=== PATIENT | female | born 1995 | race Caucasian/White ===

== ENCOUNTER 2022-12-19 20:34 | Outpatient (REF) | payer OTHER, SELFPAY ==
[2022-12-23 17:07] LABS: Age Gdln ACOG Testing Note (.); IGP, rfx Aptima HPV ASCU Note (.)
== END 2022-12-19 20:35 | disposition home or self-care (01) ==
LOC: LAB 20:34
PROVIDERS: PCP Nurse Practitioner Family; Visit Provider Obstetrics & Gynecology
DX: Z01.419 Encounter for gynecological examination (general) (routine) without abnormal findings (principal)
CPT/HCPCS: G0145

== ENCOUNTER 2022-12-29 10:03 | Outpatient (OUT) | payer OTHER, SELFPAY ==
--- NOTE | 2022-12-29 10:07 | US_ITS ---
The [address] [address] Patient Name: EPIFANIO COELHO MRN: [id number] date: 1995 Sex: F Assigned Patient Location: US Current Patient Location: US Accession/Order Number: [id number] Exam Date: 12/29/2022 10:10 Report Date: 12/29/2022 11:54 At the request of: JOSTIN HAN Procedure: US abdomen limited EXAM: US abdomen limited HISTORY: Unspecified abdominal pain R10.9 . Palpable lump right side for 3 weeks. COMPARISON: None. TECHNIQUE: Multiple sonographic images of the abdominal wall along the right side in the mid and lower aspect were obtained, supplemented with Doppler. FINDINGS: There is an oval isoechoic nodular structure measuring 6.0 x 4.2 x 4.1 cm on the right side. No other cystic or solid mass is identified. The vasculature is intact. There is no evidence of a hernia in the intra-abdominal wall. US/US abdomen limited IMPRESSION: In the right lower quadrant anterior to the oblique muscles is an oval soft tissue mass which appears relatively benign in nature, although the etiology is uncertain. This may be the reported palpable lump. No other cystic or solid mass is identified. There is no evidence of an anterior wall herniation. A follow up ultrasound study may be helpful in confirming the chronicity of these findings. Electronically authenticated by: ZO FARRAR Date: 12/29/2022 11:54
== END 2022-12-29 10:04 | disposition home or self-care (01) ==
LOC: US 10:03
PROVIDERS: PCP Nurse Practitioner Family; Visit Provider Nurse Practitioner Family
DX: R10.9 Unspecified abdominal pain (principal)
CPT/HCPCS: 76705

== ENCOUNTER 2023-01-17 12:21 | Outpatient (OUT) | payer OTHER, SELFPAY ==
--- NOTE | 2023-01-17 12:24 | CT_ITS ---
[address] [address] Patient Name: EPIFANIO COELHO MRN: [id number] date: 1995 Sex: F Assigned Patient Location: CT Current Patient Location: CT Accession/Order Number: [id number] Exam Date: 01/17/2023 13:35 Report Date: 01/17/2023 15:29 At the request of: TIANA YOST Procedure: CT abdomen pelvis w con EXAMINATION: CT abdomen pelvis w con HISTORY: Other Specified Soft Tissue Disorder M79.89 COMPARISON: 12/29/2022 ultrasound TECHNIQUE: CT images were created with IV contrast. Axial, Coronal, and Sagittal images. Dose reduction techniques were achieved by using automated exposure control and/or adjustment of mA and/or kV according to patient size and/or use of iterative reconstruction technique. FINDINGS: LUNG BASES: No visible pulmonary or pleural disease. LIVER: No enlargement, atrophy, abnormal density, or significant focal lesion. BILIARY: No visible dilatation or calcification. PANCREAS: No lesion, fluid collection, ductal dilatation, or atrophy. SPLEEN: No enlargement or focal lesion. ADRENALS: No mass or enlargement. KIDNEYS: No mass, obstruction, or calcification. BOWEL/MESENTERY: No visible mass, obstruction, or bowel wall thickening. Normal appendix AORTA/VASCULAR: No aneurysm or dissection. RETROPERITONEUM: No mass or adenopathy. LYMPH NODES: No adenopathy. URINARY BLADDER: No visible focal wall thickening, lesion, or calculus. PELVIC ORGANS: No visible mass. Pelvic organs appropriate for patient age. ABDOMINAL WALL: No mass or hernia. BONES: No bony lesion or fracture. OTHER: In the region of the patient's palpable lump right side, demarcated with the BB, axial image 61, no abnormality is observed CT/CT abdomen pelvis w con IMPRESSION: No acute intraperitoneal abnormality No abnormality to correspond to the patient's palpable Electronically authenticated by: SONA LANDIN Date: 01/17/2023 15:29
== END 2023-01-17 12:22 | disposition home or self-care (01) ==
LOC: CT 12:21
PROVIDERS: PCP Nurse Practitioner Family; Visit Provider Family Medicine
DX: M79.89 Other specified soft tissue disorders (principal)
CPT/HCPCS: 74177; 88305; Q9967

== ENCOUNTER 2023-03-13 12:30 | Outpatient (OUT) | payer OTHER, SELFPAY | END 2023-03-13 12:31 | disposition home or self-care (01) | LOC: PST 12:30 | PROVIDERS: PCP Nurse Practitioner Family; Visit Provider Surgery | DX: Z01.818 Encounter for other preprocedural examination (principal); D17.9 Benign lipomatous neoplasm, unspecified ==

== ENCOUNTER 2023-03-22 05:57 | Day surgery (SDC) | payer OTHER, SELFPAY ==
[2023-03-13 12:52] VITALS: BP 140/90; PULSE 77; RESP 18; TEMP 36.3; O2SAT 98; BMI 36.1
[2023-03-22] VITALS (13 sets, daily range): BP systolic 85–119; BP diastolic 45–84; PULSE 64–109; RESP 15–22; TEMP 36.3–36.4; O2SAT 94–99
--- NOTE | 2023-03-22 | OP_ITS ---
OPERATION DATE: ??03/22/2023 PREOPERATIVE DIAGNOSIS:? Enlarging painful lipoma right flank. POSTOPERATIVE DIAGNOSIS:? Enlarging painful lipoma right flank. PROCEDURE:? Excisional biopsy lipoma right flank. ANESTHESIA:? General with laryngeal mask airway. ESTIMATED BLOOD LOSS:? Less than 3 mL. SIZE OF LIPOMA:? 6 x 4 cm. INDICATIONS AND CONSENT:? Patient is a 27-year-old female with history of enlarging, asymptomatic lipoma of the right flank.? She is undergoing a LEEP procedure by Dr. Mo under anesthesia and requested excision of the lipoma at the same times.? Indications, risks, benefits, alternative of proceeding were explained extensively to the patient, including the risks of bleeding, infection, scarring, pain, recurrence and need for further surgery.? All of her questions were answered.? Informed consent was obtained. PROCEDURE:? Patient was already in the operating room, under general anesthesia, had completed the LEEP procedure.? She was prepped and draped in the usual sterile fashion.? An oblique incision was made over the long axis of the lipoma and carried down through subcutaneous tissue using sharp dissection as well as electrocautery.? A 6 x 4 cm lipoma was identified and freed up using electrocautery.? It was sent off to Pathology.? There was good hemostasis.? The wound was irrigated.? The subcutaneous tissue was re-approximated with interrupted 3-0 Monocryl suture.? The skin was then closed with a running 4-0 subcuticular Monocryl suture.? Skin glue was applied as well as a sterile pressure dressing. ?Sponge and needle counts were correct x2 per nursing personnel.? Patient tolerated procedure well, was sent to recovery room in good condition.\ CC:? Patient?s family physician BROOKS
[2023-03-22 06:07] LABS: Basophils Absolute Auto 0.1 10^3/uL (0.0-0.1); Basophils Percent Auto 0.5 % (0.2-2.0); Eosinophils Absolute Auto 0.2 10^3/uL (0.0-0.7); Eosinophils Percent Auto 1.7 % (0.9-7.0); Hematocrit 41.1 % (36.0-48.0); Immature Granulocytes Abs Auto 0.02 10^3/uL (0.00-0.03); Immature Granulocytes Pct Auto 0.2 % (0.0-0.5); Lymphocytes Absolute Auto 4.3 10^3/uL (1.2-3.8); Lymphocytes Percent Auto 38.1 % (20.5-60.0); Mean Corpuscular HGB Conc 34.1 g/dL (29.9-35.2); Mean Corpuscular Hemoglobin 31.2 pg (26.7-34.0); Mean Corpuscular Volume 91.5 fL (81.0-99.0); Mean Platelet Volume 8.2 fL (9.5-13.5); Monocytes Absolute Auto 0.8 10^3/uL (0.3-0.8); Monocytes Percent Auto 6.7 % (1.7-12.0); Neutrophils Absolute Auto 5.9 10^3/uL (1.4-6.5); Neutrophils Percent Auto 52.8 % (43.0-75.0); Platelet Count 330 10^3/uL (150-450); Red Blood Count 4.49 10^6/uL (4.20-5.40); Red Cell Distribution Width 11.8 % (11.0-15.0); White Blood Count 11.3 10^3/uL (4.0-11.0)
--- NOTE | 2023-03-22 06:36 | PC.NURSE ---
Wheezing noted initially and clear after instructed to cough
[2023-03-22 06:38] LABS: HCG Quantitative <1 mIU/mL
[2023-03-22] MEDS: LACTATED RINGER'S SOLUTION 1,000 ML 50 ML IV (07:08)
[2023-03-22] MEDS: CEFAZOLIN SODIUM/DEXTROSE,ISO 2 GM/50 ML PIGGYBACK IV (07:09)
[2023-03-22] MEDS: IODINE/POTASSIUM IODIDE 8 ML SOLUTION TOPICAL (07:35)
[2023-03-22] MEDS: FERRIC SUBSULFATE 8 ML SOLUTION TOPICAL (07:45)
--- NOTE | 2023-03-22 07:50 | PM.ONB ---
Brief Operative Note Date of procedure: 03/22/23 Pre-op diagnosis: cervical dysplasia Post-op diagnosis: same as pre-op Procedure: NAME OF PROCEDURE: [leep ] PROCEDURE: Patient was taken back to the Operating Room where she was given general anesthesia without difficulty. She was then placed in the dorsal lithotomy position. She was then prepped and draped in the normal sterile fashion. A weighted speculum was placed into the patient's vagina. The anterior lip of the cervix was identified and grasped with a single-tooth tenaculum. The patient's cervix was then copiously irrigated using vinegar.? Then, a Lugol Solution was also placed onto the patient's cervix which demonstrated increased uptake of the Lugol solution at the [? ] o?clock and [? ] o?clock positions.? At that time, the LEEP portion of the procedure was performed, including both the [? ] o?clock and [? ] o?clock positions. The ectocervix was sent out to Pathology. The patient's cervix was then coagulated using suction cautery. Excellent hemostasis was assured.? Monsel Solution was then placed onto the patient's cervix to help maintain adequate hemostasis. All instruments were removed from the patient's vagina. The anterior lip of the cervix demonstrated excellent hemostasis.? The patient tolerated the procedure well. Sponge, lap, and needle counts were correct x 2. The patient was taken to Recovery Room in stable condition. Anesthesia: KAREN Surgeon: Hollis Mo Estimated blood loss (mL): 10 Pathology: other (ectocervical tissue) Condition: stable Disposition: floor
[2023-03-22] MEDS: BUPIVACAINE HCL 0.5% PF 50 MG/10 ML VIAL INJ (08:20)
[2023-03-22] MEDS: HYDROCODONE/ACET 5-325 MG TABLET 1 TAB PO (08:54)
--- NOTE | 2023-03-22 09:43 | PC.NURSE ---
0943: pt up to bathroom with minimal assistance,voids without difficulty.
== END 2023-03-22 09:52 | disposition home or self-care (01) ==
PROVIDERS: Obstetrics & Gynecology; PCP Nurse Practitioner Family; Visit Provider Surgery
PROC: (CPT 21931; principal; 2023-03-22 07:15)
PROC: (CPT 940; 2023-03-22 07:15)
DX: R87.613 High grade squamous intraepithelial lesion on cytologic smear of cervix (HGSIL) (principal); D17.1 Benign lipomatous neoplasm of skin and subcutaneous tissue of trunk; F31.81 Bipolar II disorder; K21.9 Gastro-esophageal reflux disease without esophagitis; L73.2 Hidradenitis suppurativa; E66.01 Morbid (severe) obesity due to excess calories; K58.9 Irritable bowel syndrome, unspecified; R10.9 Unspecified abdominal pain; F17.210 Nicotine dependence, cigarettes, uncomplicated; Z68.36 Body mass index [BMI] 36.0-36.9, adult
CPT/HCPCS: 21931; 57522; 36415; 84702; 85025; 88304; 88307; 88341; 88342; J2704

== ENCOUNTER 2023-07-31 22:05 | Outpatient (REF) | payer OTHER, SELFPAY ==
--- OUTSIDE RECORDS SUMMARY | 2023-07-31 22:11 | XMS_ITS | CCD ---
Author Organization [facility] Care Team Providers Care Vet Tech Name Role Phone NEEMA Gutierres, DR HILL Admitting Unavailable NEEMA Gutierres, DR HILL Consulting Unavailable NEEMA Gutierres, DR HILL Attending Unavailable KELLY HAN Primary Care Unavailable MARV DÍZA Consulting Unavailable KELLY HAN Primary Care Physician MELQUIADES DURAND Attending Unavailable NILL, José Sorto Attending Unavailable NILL, José Sorto Attending Unavailable NILL, José Sorto Attending Unavailable Allergies Allergy Classification Reported Allergen(s) Allergy Type Date of Onset Reaction(s) Facility (3 sources) Latex; Translations: [Latex] Allergy to substance Weal (disorder) General Surgery [facility] (1 source) No Known Medication Allergies; Translations: [No Known Medication Allergies] Propensity to adverse reactions (disorder) [facility] Repository NEGATED: Highlighted row has been ruled out! (1 source) Drug allergy [facility] NEGATED: Highlighted row has been ruled out! (1 source) Drug allergy [facility] Medications Current Medications Medication Drug Class(es) Dates Sig (Normalized) Sig (Original) atomoxetine 40 mg oral capsule (2 sources) Norepinephrine Reuptake Inhibitor Start: 02-13-2023 take 1 capsule by mouth once daily in the morning Strattera 40 mg Cap 40 mg = 1 cap(s), Oral, qAM, Refills(s) 0 Start Date: 02/13/23 Status: Ordered omeprazole 40 mg delayed release oral capsule (2 sources) Proton Pump Inhibitor Start: 02-21-2023 take 1 capsule by mouth once daily omeprazole 40 mg Cap-DR 40 mg = 1 cap(s), Oral, Daily, Refills(s) 0 Start Date: 02/21/23 Status: Ordered Problems Problem Classification Problem Date Documented Da te Episodic/Chronic Attention-deficit, conduct, and disruptive behavior disorders (2 sources) Attention deficit hyperactivity disorder 02-13-2023 Chronic E Codes: Natural/environment (1 source) Overexertion from prolonged static or awkward postures, initial encounter; Translations: [OVEREXERT PROLNG STAT/AWK PST INIT] Onset: 3 Episodic E Codes: Unspecified (1 source) Activity, walking, marching and hiking; Translations: [ACTIVITY WALKING MARCHING AND HIKING] Onset: 3 Episodic Esophageal disorders (2 sources) Gastroesophageal reflux disease 02-13-2023 Chronic Mood disorders (2 sources) Bipolar II disorder 02-13-2023 Chronic Other and unspecified benign neoplasm (4 sources) Lipoma of skin and subcutaneous tissue of trunk; Translations: [Benign lipomatous neoplasm of skin and subcutaneous tissue of trunk] Onset: 3 Episodic Other disorders of stomach and duodenum (2 sources) Indigestion 02-13-2023 Episodic Other gastrointestinal disorders (2 sources) Irritable bowel syndrome 02-13-2023 Chronic Other non-traumatic joint disorders (3 sources) Pain in right ankle and joints of right foot; Translations: [PAIN IN RIGHT ANKLE] Onset: 3 Episodic Other nutritional; endocrine; and metabolic disorders (2 sources) Body mass index 30+ - obesity 02-21-2023 Chronic Other nutritional; endocrine; and metabolic disorders (2 sources) Morbid obesity 02-21-2023 Chronic Other skin disorders (2 sources) Hidradenitis suppurativa 02-13-2023 Episodic Other upper respiratory disease (2 sources) Dysphonia 02-13-2023 Episodic Sprains and strains (1 source) Sprain of unspecified ligament of right ankle, initial encounter; Translations: [SPRAIN UNS LIGAMENT RT ANKLE INIT] Onset: 3 Episodic Substance-related disorders (2 sources) Nicotine dependence 02-13-2023 Chronic Results Test Name Value Interpretation Reference Range Facil ity Ambulatory Visit Summaryon 1 06-08-2022 Ambulatory Visit Summary EPIFANIO COELHO :1995 Visit Date:04/07/2023 Ambulatory Visit Instructions Your Diagnosis Lipoma of flank Your Care Team Attending Physician - KRYSTLE TOWNSEND, José Sorto Primary Care Physician - EMELY ALVARADO, KELLY Johnson This Is Your Medications List Contact prescribing physician if questions or concerns atomoxetine (Strattera 40 mg Cap) omeprazole (omeprazole 40 mg Cap-DR) Procedures Performed Excision of lipoma (03/22/2023), section, section. Medications What How Much When Instructions Unchanged atomoxetine (Strattera 40 mg Cap) 1 Capsules By Mouth Once a day (in the morning) Contact prescribing physician if questions or concerns Unchanged omeprazole (omeprazole 40 mg Cap-DR) 1 Capsules By Mouth Every day Contact prescribing physician if questions or concerns Allergies Latex (Hives) No Known Medication Allergies Problems Ongoing - Any problem that you are currently receiving treatment for. Attention deficit hyperactivity disorder Bipolar II disorder BMI 36.0-36.9,adult Dyspepsia Dysphonia Gastroesophageal reflux disease Hidradenitis suppurativa Irritable bowel syndrome Lipoma of flank Morbid obesity Nicotine dependence Patient Survey You may receive a survey via text or e-mail asking about your office visit. Please share your experience with us by completing your survey. We appreciate your feedback and thank you for choosing us for your care. Normal [facility] General Surgery Office/Clini c Noteon 04-07-2023 General Surgery Office/Clinic Note Chief Complaint post operative follow up HPI Staff 16 day post operative follow up post excisional biopsy right flank lipoma. Denies discomfort, bleeding or drainage. History of Present Illness 16 days s/p excision lipoma right flank; pathology consistent with benign lipoma; doing well, mild soreness, no drainage from incision. Review of Systems HEENT: normal conjunctiva, sclera clear, no scleral icterus, EOM intact, PERRLA, oral mucosa moist without lesions. Neck: trachea midline, no mass, symmetric, no thyromegaly or nodules, no adenopathy Respiratory: lungs CTA, respirations non labored. Cardiovascular: regular rate and rhythm, no murmur, no pedal edema or varicosities. Gastrointestinal: soft, non distended, no tenderness, no masses, no palpable hernias, diastasis recti no, no hepatosplenomegaly; normal bs Lymphatic: no cervical adenopathy, no axillary adenopathy, no inguinal adenopathy. Musculoskeletal: normal gait, digits and nails without infection, nodes, cyanosis, clubbing. Skin: no rashes, no lesions, no ulcers, no subcutaneous nodules, induration. Psychiatric/Neuro: oriented to time, place, person, judgement normal, affect appropriate for age, insight intact, no focal deficits. Tests: labs reviewed, x-rays reviewed, review of old records completed , _ surgical options, risks, and possible complications with patient. Physical Exam skin: incision healing well, no erythema or drainage, no ecchymoses. Assessment/Plan 1. Lipoma of flank (D17.1: Benign lipomatous neoplasm of skin and subcutaneous tissue of trunk) doing well, call with problems/questions. Follow-up No qualifying data available Problem List/Past Medical History Ongoing Attention deficit hyperactivity disorder Bipolar II disorder BMI 36.0-36.9,adult Dyspepsia Dysphonia Gastroesophageal reflux disease Hidradenitis suppurativa Irritable bowel syndrome Lipoma of flank Morbid obesity Nicotine dependence Historical No qualifying data Procedure/Surgical History Excision of lipoma (03/22/2023), section, section. Medications omeprazole 40 mg Cap-DR, 40 mg= 1 cap(s), Oral, Daily Strattera 40 mg Cap, 40 mg= 1 cap(s), Oral, qAM Allergies Latex (Hives) No Known Medication Allergies Social History Alcohol - Denies Alcohol Use, 02/21/2023 Substance Abuse Current, Marijuana, 1-2 times per month, 02/21/2023 Tobacco 10 or more cigarettes (1/2 pack or more)/day in last 30 days Tobacco Use:. Never Smokeless Tobacco Use:. Cigarettes, 1 per day. Started age 13.0 Years. Yes, 02/21/2023 Family History Family history is negative Immunizations Vaccine Date Status Comments influenza virus vaccine, inactivated - Not Given Patient Refuses Normal [facility] Comment on above: Result Comment: Elec tronically Signed By: KRYSTLE TOWNSEND, José Steiner\Date and Time Signed: 04/07/23 14:20 EST Pathology Noteon 04-03-2023 Pathology Note [id number] #1.00TIFF Normal [facility] Operative Reporton Operative Report [id number] #1.00TIFF Normal [facility] Insurance Correspondenceon Insurance Correspondence [id number] 1#1.00TIFF [facility] Consent for Procedure/Surger yon 02-22-2023 Consent for Procedure/Surgery [id number]#1.00TIFF [facility] Ambulatory Visit Summaryon 1 Ambulatory Visit Summary EPIFANIO COELHO :1995 Visit Date:02/21/2023 Ambulatory Visit Instructions Your Care Team Attending Physician - KRYSTLE TOWNSEND, José Sorto Primary Care Physician - KELLY HAN CNP This Is Your Medications List Contact prescribing physician if questions or concerns atomoxetine (Strattera 40 mg Cap) omeprazole (omeprazole 40 mg Cap-DR) Procedures Performed section, section. Discharge Vitals Heart Rate (Peripheral) 76 Respiratory Rate 16 Blood Pressure 118/72 Height 160 cm Height 63 in Weight 93.1 kg Weight 204.82 lb BMI 36.37 Medications What How Much When Instructions Unchanged atomoxetine (Strattera 40 mg Cap) 1 Capsules By Mouth Once a day (in the morning) Contact prescribing physician if questions or concerns Unchanged omeprazole (omeprazole 40 mg Cap-DR) 1 Capsules By Mouth Every day Contact prescribing physician if questions or concerns Allergies Latex (Hives) No Known Medication Allergies Problems Ongoing - Any problem that you are currently receiving treatment for. Attention deficit hyperactivity disorder Bipolar II disorder BMI 36.0-36.9,adult Dyspepsia Dysphonia Gastroesophageal reflux disease Hidradenitis suppurativa Irritable bowel syndrome Morbid obesity Nicotine dependence [facility] Formson 02-21-2023 Forms [id number] #1.00TIFF [facility] Provider Letteron 02-03-2023 Provider Letter February 03, 2023 EPIFANIO COELHO [address] [place] [address] : 1995 Dear Ms. Coelho We have been trying to reach you with no success regarding a referral from Kelly Han. The phone number we have on file is out of service. It is important that you return our call upon receiving this letter so that we can set up an appointment for you. Also, at the time of your call, please provide us with your current demographic and insurance information. Thank you for your prompt attention to this matter. Sincerely, [facility] General Surgery [phone] Normal [facility] RAD - CT Reporton 02-01-2023 RAD - CT Report [id number] #1.00CD:127 Normal [facility] RAD - Ultrasound Reporton RAD - Ultrasound Report [id number]# 1.00CD:127 Normal [facility] Physician Referralon 023 Physician Referral [id number] #1.00CD:127 Normal [facility] XR FOOT LT MIN 3 VIEWSon XR FOOT LT MIN 3 VIEWS EXAM: XR ANKLE LT MIN 3 V, XR FOOT LT MIN 3 VIEWS HISTORY: Joint swelling COMPARISON: None. TECHNIQUE: Multiple views of the left ankle and foot FINDINGS: Ankle and foot: There is no acute fracture or dislocation. The ankle mortise is unremarkable. The talar dome is congruent. There is soft tissue swelling about the ankle. IMPRESSION: No acute fracture or dislocation. Electronically authenticated by: MARV DÍAZ Date: 2022-08-06 11:17 Normal [facility] Vital Signs Date Time Vital Sign Value Performing Clinician Dharmesh mcbride 02-21-2023 13:13-0400 Blood Pressure Location José DALTON [facility] 02-21-2023 13:13-0400 Diastolic blood pressure 72 mm[Hg] José DALTON [facility] 02-21-2023 13:13-0400 Heart rate 76 /min José DALTON [facility] 02-21-2023 13:13-0400 Respiratory rate 16 /min José DALTON [facility] 02-21-2023 13:13-0400 Systolic blood pressure 118 mm[Hg] José DALTON General Surgery [facility] Encounters Encounter Date Encounter Type Care Provider Facility Start: 04-07-2023 End: 04-08-2023 ambulatory José DALTON Facility:[facility] Start: 04-07-2023 End: 04-07-2023 Patient encounter procedure José DALTON General Surgery [place] Start: 03-29-2023 End: 03-29-2023 ambulatory MELQUIADES DURAND Not Available Start: 03-22-2023 End: 03-23-2023 ambulatory José DALTON Facility:[id number] Start: 02-21-2023 End: 02-22-2023 ambulatory José DALTON Facility:[facility] Start: 02-21-2023 End: 02-21-2023 Patient encounter procedure José DALTON General Surgery [place] Start: 01-31-2023 ambulatory José DALTON Facility:[facility] Start: 08-06-2022 End: 08-06-[address] SERGIO BETHEA . Facility: Procedures Date Procedure Procedure Detail Performing Clinician Start: 03-22-2023 Excision of lipoma Sridhar DALTON Comment on above: right flank section José Carlos Immunizations Immunization Date Immunization Notes Care Provider Fa cility NEGATED: Highlighted row has not occurred!02-21-2023 influenza virus vaccine, unspecified formulation José DALTON General Surgery [facility] Payers Date Payer Category Payer Unknown [id number] [id number] 1995 Unknown [id number] 1995 Unknown [id number] [id number] [id number] 1995 Unknown [id number] 2.16.8 [id number] 1995 Unknown [id number] 2.16.8 [id number] 1961 Unknown [id number] Social History Date Type Detail Facility Start: 02-21-2023 Tobacco smoking status Heavy t obacco smoker (finding) [facility] Tobacco smoking status Never Gener [facility] Sex Assigned At Female [facility] Functional Status Date Assessment Result Facility 02-21-2023 Functional Status N/A [facility] Clinical Note 02-21-2023 Note Date & Type Note Facility 02-21-2023 Note Chief Complaint consultation for abdominal mass HPI Staff 27 year old female presents on consultation from Neris Han for abdominal mass. Reports she noted mass to right flank several months ago. Believes this has increased in size since first noted. Reports fairly constant pain to this area. CT abdomen/pelvis-negative. ABD US completed 12/29 with benign soft tissue mass. History of Present Illness 27 yo female with h/o bipolar d/o, GERD, referred for painful mass right flank; noticed several months ago; slight increase in size; no injury to area, no skin changes; negative abd ct scan, but US with 6 x 2 cm nodule, likely lipoma; fmhx of lipomas; no asa. or NSAID use; smokes daily. Review of Systems PHQ Score Initial Depression Screen Score: 0 ROS - Provider Constitutional: no fever, no sweats, no weight loss. Eyes: no glasses, no blurred vision, no visual loss. ENMT: no dentures, no hoarseness, no swallowing difficulties, no hearing loss, no ear infection(s), no nose bleeds. Cardiovascular: normal blood pressure, no chest pain, regular heartbeat, no heart murmur. Respiratory: no shortness of breath, no cough, no asthma, no wheezing. Gastrointestinal: no nausea, no vomiting, no diarrhea, no constipation, no blood in stool, no change in bowel habits, no abdominal pain, no hepatitis. Genitourinary: no kidney stones, no urine infection, no dysuria. Musculoskeletal: no pain, no weakness. Skin: no changing moles, no rash, yes skin lumps. Neurologic: no seizures, no epilepsy, no headache. Psychiatric: no emotional or psychiatric problem. Heme/Lymph: no bleeding problems, no anemia, no blood clots, no transfusions. Allergy/Immunologic: no swollen lymph nodes/glands, no IV drug abuse. Other: Additional ROS info: Except as noted in the above Review of Systems and in the History of Present Illness, all other systems have been reviewed and are negative or noncontributory. Physical Exam Vitals & Measurements HR: 76(Peripheral) RR: 16 BP: 118/72 HT: 63 in HT: 160 cm WT: 93.1 kg WT: 204.82 lb BMI: 36.37 HEENT: normal conjunctiva, sclera clear, no scleral icterus, EOM intact, PERRLA, oral mucosa moist without lesions. Neck: trachea midline, no mass, symmetric, no thyromegaly or nodules, no adenopathy Respiratory: lungs CTA, respirations non labored. Cardiovascular: regular rate and rhythm, no murmur, no pedal edema or varicosities. Gastrointestinal: obese, soft, non distended, no tenderness, no masses, no palpable hernias, diastasis recti no, no hepatosplenomegaly; normal bs Lymphatic: no cervical adenopathy, no supraclavicular adenopathy. Musculoskeletal: normal gait, digits and nails without infection, nodes, cyanosis, clubbing. Skin: no rashes, no lesions, no ulcers, right flank with deep, 6 cm nodule, mobile; no skin changes, tender Psychiatric/Neuro: oriented to time, place, person, judgement normal, affect appropriate for age, insight intact, no focal deficits. Tests: x-rays reviewed, review of old records completed , Discussed surgical options, risks, and possible complications with patient. Assessment/Plan 1. Lipoma of flank (D17.1: Benign lipomatous neoplasm of skin and subcutaneous tissue of trunk) plan excisional biopsy under monitored anesthesia care, informed consent obtained. Follow-up No qualifying data available Problem List/Past Medical History Ongoing Attention deficit hyperactivity disorder Bipolar II disorder BMI 36.0-36.9,adult Dyspepsia Dysphonia Gastroesophageal reflux disease Hidradenitis suppurativa Irritable bowel syndrome Lipoma of flank Morbid obesity Nicotine dependence Historical No qualifying data Procedure/Surgical History section, section. Medications omeprazole 40 mg Cap-DR, 40 mg= 1 cap(s), Oral, Daily Strattera 40 mg Cap, 40 mg= 1 cap(s), Oral, qAM Allergies Latex (Hives) No Known Medication Allergies Social History Alcohol - Denies Alcohol Use, 02/21/2023 Substance Abuse Current, Marijuana, 1-2 times per month, 02/21/2023 Tobacco 10 or more cigarettes (1/2 pack or more)/day in last 30 days Tobacco Use:. Never Smokeless Tobacco Use:. Cigarettes, 1 per day. Started age 13.0 Years. Yes, 02/21/2023 Family History Family history is negative Immunizations Vaccine Date Status Comments influenza virus vaccine, inactivated - Not Given Patient Refuses [facility] Comment on above: Result Comment: Elec tronically Signed By: KRYSTLE TOWNSEND, José Steiner\Date and Time Signed: 02/21/23 20:35 EDT Evaluation + Plan note Note Date & Type Note Facility Evaluation + Plan note No data available for this section General [facility] Discharge instructions Note Date & Type Note Facility Hospital Discharge instructions No data available for this section General Surgery [facility] Progress note Note Date & Type Note Facility Progress note No data available for this section [facility] Summary Purpose Family History No Family History Records Found No data available for this section No Family History Records Found No data available for this section No Family History Records Found Advance Directives No Advanced Directives Records FoundNo Advanced Directives Records FoundNo Advanced Directives Records Found Additional Source Comments INFORMATION SOURCE (unrecogn ized section and content) DATE CREATED AUTHOR 08/10/2022 [facility] DATE CREATED AUTHOR AUTHOR'S ORGANIZ ATION 03/31/2023 [facility] EPIC DATE CREATED AUTHOR AUTHOR'S ORGANIZ ATION 04/08/2023 [facility] Patient Care team informatio n (unrecognized section and content) Personnel Name: KELLY HAN CNP Address: Address: [address] [place], [place] [id number] Personnel Name: KELLY HAN CNP Address: Address: [address] [place] [address] [id number] FOR RECORDS PERTAINING TO PATIENTS WHO ARE OR HAVE BEEN ENROLLED IN A CHEMICAL DEPENDENCY/SUBSTANCEABUSE PROGRAM, SOME INFORMATION MAY BE OMITTED. This clinical summary was aggregated from multiple sources. Caution should be exercised in using it in the provision of clinical care. This summary normalizes information from multiple sources, and as a consequence, information in this document may materially change the coding, format and clinical context of patient data. In addition, data may be omitted in some cases. CLINICAL DECISIONS SHOULD BE BASED ON THE PRIMARY CLINICAL RECORDS. [facility], [facility]. provides no warranty or guarantee of the accuracy or completeness of information in this document.
[2023-08-07 12:08] LABS: Age Gdln ACOG Testing Note (.); HPV Aptima Negative (Negative); IGP, Aptima HPV, rfx 16/18,45 Note (.)
== END 2023-07-31 22:06 | disposition home or self-care (01) ==
LOC: LAB 22:05
PROVIDERS: PCP Nurse Practitioner Family; Visit Provider Obstetrics & Gynecology
DX: R87.613 High grade squamous intraepithelial lesion on cytologic smear of cervix (HGSIL) (principal)
CPT/HCPCS: 87624; G0145

== ENCOUNTER 2023-08-23 09:25 | Outpatient (OUT) | payer OTHER, SELFPAY ==
--- NOTE | 2023-08-23 09:38 | MM_ITS ---
Patient Name: EPIFANIO COELHO MR#: [id number] : 1995 Exam Date: 08/23/2023 Ordering Doctor: DR Hollis Mo . RADIOLOGY REPORT PROCEDURE: MM TOMOSYNTHESIS DIAGNOSTIC BI, 08/23/2023, 09:05 US BREAST BI LIMITED, 08/23/2023, 10:50 COMPARISON: None. INDICATIONS: breast pain, left N64.4 Calculator Name NCI Breast Cancer Risk Assessment Tool 5 Year Breast Cancer Risk Not Applicable. Lifetime Breast Cancer Risk Not Applicable. Personal Breast Cancer No Personal Ovarian Cancer No Treatments None Family Cancers Grandmother-maternal with breast cancer at age ~45; Grandmother-maternal with cervical cancer at age ~54; Grandfather-maternal with leukemia cancer at age ~55. LOCATION: [facility] BREAST COMPOSITION: There are scattered areas of fibroglandular density. FINDINGS: DIAGNOSTIC CATEGORY 3--PROBABLY BENIGN FINDING. THE FOLLOWING FINDING(S) HAS A HIGH PROBABILITY OF A BENIGN ETIOLOGY: The breasts are large in size. Scattered benign-appearing calcifications are present. Scattered benign-appearing lymph nodes are present. RIGHT BREAST: 2 focal nodules are identified in the lower outer quadrant, posterior breast measuring 5.3 and 6.3 mm in size. These lesions are lobular in contour and partially circumscribed no calcifications. Ultrasound demonstrates at the 6 o'clock position a 5.0 x 1.9 x 2.3 mm area hypo echogenicity, oval in shape with smooth margins and no internal blood flow, this does not correspond in size to the mammographic findings. Given the multiplicity and relatively benign characteristics, six-month follow-up mammogram and ultrasound is recommended to ensure stability . LEFT BREAST: No significant suspicious finding. No mammographic or ultrasound abnormality correspond to patient's pain, further evaluation should be based on clinical and physical exam RECOMMENDATIONS: SHORT TERM FOLLOW-UP ULTRASOUND RIGHT BREAST IN 6 MONTHS. SHORT TERM FOLLOW-UP DIAGNOSTIC MAMMOGRAM RIGHT BREAST IN 6 MONTHS. PLEASE NOTE: A NORMAL MAMMOGRAM DOES NOT EXCLUDE THE POSSIBILITY OF BREAST CANCER. A CLINICALLY SUSPICIOUS PALPABLE LUMP SHOULD BE BIOPSIED. Dictated by: Higinio Wang MD on 08/23/2023 at 11:30 Approved by: Higinio Wang MD on 08/23/2023 at 11:33
== END 2023-08-23 09:26 | disposition home or self-care (01) ==
LOC: US 09:25
PROVIDERS: PCP Nurse Practitioner Family; Visit Provider Obstetrics & Gynecology
DX: N64.4 Mastodynia (principal); G89.29 Other chronic pain; R92.8 Other abnormal and inconclusive findings on diagnostic imaging of breast; N63.13 Unspecified lump in the right breast, lower outer quadrant
CPT/HCPCS: 76642; 77066; G0279

== ENCOUNTER 2023-12-18 20:38 | Outpatient (REF) | payer OTHER, SELFPAY ==
--- OUTSIDE RECORDS SUMMARY | 2023-12-18 20:41 | XMS_ITS | CCD ---
Author Organization [facility] Partnership [facility] Care Team Providers Care Pad Hand Name Role Phone NEEMA Gutierres, DR HILL Admitting Unavailable NEEMA Gutierres, DR HILL Consulting Unavailable NEEMA Gutierres, DR HILL Attending Unavailable KELLY HAN Primary Care Unavailable MARV DÍAZ Consulting Unavailable KELLY HAN Primary Care Physician [phone] José DALTON Attending Unavailable José DALTON Attending Unavailable José DALTON Attending Unavailable DAWOOD LACEY Attending Unavailable MELQUIADES DURAND Attending Unavailable Allergies Allergy Classification Reported Allergen(s) Allergy Type Date of Onset Reaction(s) Facility (3 sources) Latex; Translations: [Latex] Allergy to substance Weal (disorder) General Surgery [place] (1 source) No Known Medication Allergies; Translations: [No Known Medication Allergies] Propensity to adverse reactions (disorder) [facility] Repository NEGATED: Highlighted row has been ruled out! (1 source) Drug allergy General Surgery [place] NEGATED: Highlighted row has been ruled out! (1 source) Drug allergy General Surgery [place] Medications Current Medications Medication Drug Class(es) Dates [...] Primary Care Physician - EMELY ALVARADO, KELLY S This Is Your Medications List Contact prescribing [...] for choosing us for your care. Normal [facility] General Surgery Office/Clini c Noteon 04-07-2023 General [...] inactivated - Not Given Patient Refuses Normal [facility] Comment on above: Result Comment: Elec tronically Signed By: KRYSTLE TOWNSEND, José Steiner\Date and Time Signed: 04/07/23 14:20 EST Pathology Noteon 04-03-2023 Pathology Note [id number] #1.00TIFF Normal [facility] Operative Reporton Operative Report [id number] #1.00TIFF Normal [facility] Insurance Correspondenceon Insurance Correspondence [id number] 1#1.00TIFF [facility] Consent for Procedure/Surger yon 02-22-2023 Consent for Procedure/Surgery [id number] 8#1.00TIFF [facility] Ambulatory Visit Summaryon 1 Ambulatory Visit [...] Irritable bowel syndrome Morbid obesity Nicotine dependence [facility] Formson 02-21-2023 Forms [id number] #1.00TIFF [facility] Provider Letteron 02-03-2023 Provider Letter February 03, 2023 EPIFANIO COELHO [address] [place] [address] : 1995 Dear Ms. Coelho We have [...] your prompt attention to this matter. Sincerely, [place] [facility] General Surgery [phone] Normal [facility] RAD - CT Reporton 02-01-2023 RAD - CT Report [id number] #1.00CD:127 Normal [facility] RAD - Ultrasound Reporton RAD - Ultrasound Report [id number]# 1.00CD:127 Normal [facility] Physician Referralon 023 Physician Referral [id number] #1.00CD:127 Normal [facility] XR FOOT LT MIN 3 VIEWSon [...] by: MARV DÍAZ Date: 2022-08-06 11:17 Normal [facility] Vital Signs Date Time Vital Sign Value Performing Clinician Dharmesh mcbride 02-21-2023 13:13-0400 Blood Pressure Location José DALTON [facility] 02-21-2023 13:13-0400 Diastolic blood pressure 72 mm[Hg] José DALTON [facility] 02-21-2023 13:13-0400 Heart rate 76 /min José DALTON [facility] 02-21-2023 13:13-0400 Respiratory rate 16 /min José DALTON [facility] 02-21-2023 13:13-0400 Systolic blood pressure 118 mm[Hg] José DALTON General Surgery [place] Encounters Encounter Date Encounter Type Care Provider Facility Start: 07-31-2023 End: 07-31-2023 ambulatory DAWOOD LACEY Not Available Start: 04-07-2023 End: 04-08-2023 ambulatory José DALTON Facility:[facility] Start: 04-07-2023 End: 04-07-2023 Patient encounter procedure José VALVERDEL General Surgery Nill/Said [place] Start: 03-29-2023 End: 03-29-2023 ambulatory MELQUIADES KIZZY Not Available Start: 03-22-2023 End: 03-23-2023 ambulatory José Noreen NICOLLETerrance Facility:[id number] Start: 02-21-2023 End: 02-22-2023 ambulatory José Noreen DALTON Facility: [place] Start: 02-21-2023 End: 02-21-2023 Patient encounter procedure José VALVERDEL General Surgery iNcollel/Said [place] Start: 01-31-2023 ambulatory José KRYSTLE Facility: [facility] Start: 08-06-2022 End: 08-06-[address] SERGIO BETHEA . Facility: Procedures Date Procedure Procedure Detail Performing Clinician Start: 03-22-2023 Excision of lipoma Sridhar DALTON Comment on above: right flank section José VALVERDE L Immunizations Immunization Date Immunization Notes Care Provider Fa cility NEGATED: Highlighted row has not occurred!02-21-2023 influenza virus vaccine, unspecified formulation José DALTON General Surgery [place] Payers Date Payer Category Payer Unknown [id number] 2.16.84 [id number] 1995 Unknown [id number] 2.16.8 [id number] 1995 Unknown [id number] 2.16.8 [id number] 1993 Unknown [id number] 2.16.8 [id number] 1993 Unknown [id number] 2.16.84 [id number] 1993 Unknown [id number] 1959 Unknown [id number] Social History Date Type Detail Facility Start: 02-21-2023 Tobacco smoking status Heavy t obacco smoker (finding) General Surgery [place] Tobacco smoking status Never Gener al Surgery [place] Sex Assigned At Female [facility] Functional Status Date Assessment Result Facility 02-21-2023 Functional Status N/A General Gl[facility] rgery [place] Clinical Note 02-21-2023 Note Date & Type [...] vaccine, inactivated - Not Given Patient Refuses [facility] Comment on above: Result Comment: Elec tronically Signed By: KRYSTLE TOWNSEND, José Steiner\Date and Time Signed: 02/21/23 20:35 EDT Evaluation + Plan note Note Date & Type Note Facility Evaluation + Plan note No data available for this section General [facility] [place] [facility] Discharge instructions Note Date & Type Note Facility Hospital Discharge instructions No data available for this section General Surgery [place] Progress note Note Date & Type Note Facility Progress note No data available for this section General Surgery [place] Summary Purpose Family History No Family History Records Found No data available for this section No data available for this section No Family History Records FoundNo Family History Records Found Advance Directives No Advanced Directives Records FoundNo Advanced Directives Records FoundNo Advanced Directives Records Found Additional Source Comments INFORMATION SOURCE (unrecogn ized section and content) DATE CREATED AUTHOR 08/10/2022 [facility] DATE CREATED AUTHOR AUTHOR'S ORGANIZ ATION 04/08/2023 [facility] DATE CREATED AUTHOR AUTHOR'S ORGANIZ ATION 08/01/2023 [facility] dical Specialists EPIC Patient Care team informatio n (unrecognized section and content) Personnel Name: KELLY HAN CNP Address: Address: [address] Personnel Name: KELLY HAN CNP Address: Address: [address] FOR RECORDS PERTAINING TO PATIENTS WHO [...] BE BASED ON THE PRIMARY CLINICAL RECORDS. [facility]. provides no warranty or guarantee of the accuracy or completeness of information in this document.
== END 2023-12-18 20:39 | disposition home or self-care (01) ==
LOC: LAB 20:38
PROVIDERS: PCP Nurse Practitioner Family; Visit Provider Obstetrics & Gynecology
DX: R87.613 High grade squamous intraepithelial lesion on cytologic smear of cervix (HGSIL) (principal)
CPT/HCPCS: 88175

== ENCOUNTER 2024-02-29 10:15 | Outpatient (OUT) | payer OTHER, SELFPAY ==
--- NOTE | 2024-02-29 10:20 | US_ITS ---
Patient Name: EPIFANIO COELHO MR#: [id number] : 1995 Exam Date: 02/29/2024 Ordering Doctor: DR Hollis Mo . RADIOLOGY REPORT PROCEDURE: MM TOMOSYNTHESIS DIAGNOSTIC RT, 02/29/2024, 10:21 US BREAST RT LIMITED, 02/29/2024, 10:36 COMPARISON: MM TOMOSYNTHESIS DIAGNOSTIC BI, 08/23/2023. INDICATIONS: Abnormal Mammogram Calculator Name NCI Breast Cancer Risk Assessment Tool 5 Year Breast Cancer Risk Not Applicable. Lifetime Breast Cancer Risk Not Applicable. Personal Breast Cancer No Personal Ovarian Cancer No Treatments None Family Cancers Grandmother-maternal with breast cancer at age ~45; Grandmother-maternal with cervical cancer at age ~54; Grandfather-maternal with leukemia cancer at age ~55. LOCATION: [facility] BREAST COMPOSITION: There are scattered areas of fibroglandular density. FINDINGS: DIAGNOSTIC CATEGORY 3--PROBABLY BENIGN FINDING. THE FOLLOWING FINDING(S) HAS A HIGH PROBABILITY OF A BENIGN ETIOLOGY: RIGHT BREAST: Stable geographic shaped opacity within posterior lower-outer quadrant near the chest wall, 6 millimeters when measured in the same projection. Ultrasound evaluation could not identify a mass or architectural distortion within this area. Follow-up mammography in 6 months is recommended to document continued stability. Alternatively, stereotactic guided biopsy could be performed of this lesion at this time. While it is close to the chest wall, I think it would be amendable. RECOMMENDATIONS: SHORT TERM FOLLOW-UP ULTRASOUND RIGHT BREAST IN 6 MONTHS. SHORT TERM FOLLOW-UP DIAGNOSTIC MAMMOGRAM RIGHT BREAST IN 6 MONTHS. PLEASE NOTE: A NORMAL MAMMOGRAM DOES NOT EXCLUDE THE POSSIBILITY OF BREAST CANCER. A CLINICALLY SUSPICIOUS PALPABLE LUMP SHOULD BE BIOPSIED. Dictated by: Austin Fernandes M.D. on 02/29/2024 at 11:02 Approved by: Austin Fernandes M.D. on 02/29/2024 at 11:13
--- OUTSIDE RECORDS SUMMARY | 2024-02-29 10:22 | XMS_ITS | CCD ---
Author Organization [facility] Care Team Providers Care Tin Roofer Name Role Phone NEEMA Gutierres, DR HILL Admitting Unavailable NEEMA Gutierres, DR HILL Consulting Unavailable NEEMA Gutierres, DR HILL Attending Unavailable KELLY HAN Primary Care Unavailable MARV DÍAZ Consulting Unavailable KELLY HAN Primary Care Physician José DALTON Attending Unavailable José DALTON Attending Unavailable José DALTON Attending Unavailable DAWOOD LACEY Attending Unavailable MELQUIADES DURAND Attending Unavailable DAWOOD LACEY Attending Unavailable Allergies Allergy Classification Reported Allergen(s) Allergy Type Date of Onset Reaction(s) Facility (3 sources) Latex; Translations: [Latex] Allergy to substance Weal (disorder) General Surgery [place] (1 source) No Known Medication Allergies; Translations: [No Known Medication Allergies] Propensity to adverse reactions (disorder) [facility] Repository NEGATED: Highlighted row has been ruled out! (1 source) Drug allergy General Surgery [place] NEGATED: Highlighted row has been ruled out! [...] Results Test Name Value Interpretation Reference Range Genny ity Ambulatory Visit Summaryon 1 06-08-2022 Ambulatory [...] for choosing us for your care. Normal [facility] General Surgery Office/Clini c Noteon 04-07-2023 General [...] inactivated - Not Given Patient Refuses Normal [facility] Comment on above: Result Comment: Elec tronically Signed By: KRYSTLE TOWNSEND, José Steiner\Date and Time Signed: 04/07/23 14:20 EST Pathology Noteon 04-03-2023 Pathology Note [id number] #1.00TIFF Normal [facility] Operative Reporton Operative Report [id number] #1.00TIFF Normal [facility] Insurance Correspondenceon Insurance Correspondence [id number] 1#1.00TIFF [facility] Consent for Procedure/Surger yon 02-22-2023 Consent for Procedure/Surgery [id number] 8#1.00TIFF [facility] Ambulatory Visit Summaryon Ambulatory Visit Summary EPIFANIO COELHO :1995 Visit [...] Irritable bowel syndrome Morbid obesity Nicotine dependence [facility] Formson 02-21-2023 Forms [id number] #1.00TIFF [facility] Provider Letteron 02-03-2023 Provider Letter February 03, 2023 EPIFANIO COELHO [address] [place] [address] : 1995 Dear Ms. Coelho We have [...] your prompt attention to this matter. Sincerely, [facility] Surgery [phone] Normal [facility] RAD - CT Reporton 02-01-2023 RAD - CT Report [id number] #1.00CD:127 Normal [facility] RAD - Ultrasound Reporton RAD - Ultrasound Report [id number]# 1.00CD:127 Normal [facility] Physician Referralon 023 Physician Referral [id number] #1.00CD:127 Normal [facility] XR FOOT LT MIN 3 VIEWSon XR [...] by: MARV DÍAZ Date: 2022-08-06 11:17 Normal [facility] Vital Signs Date Time Vital Sign Value Performing Clinician Dharmesh mcbride 02-21-2023 13:13-0400 Blood Pressure Location José DALTON [facility] 02-21-2023 13:13-0400 Diastolic blood pressure 72 mm[Hg] José DALTON [facility] 02-21-2023 13:13-0400 Heart rate 76 /min José DALTON [facility] 02-21-2023 13:13-0400 Respiratory rate 16 /min José DALTON [facility] 02-21-2023 13:13-0400 Systolic blood pressure 118 mm[Hg] José VALVERDETerrance General Surgery [place] Encounters Encounter Date Encounter Type Care Provider Facility Start: 12-18-2023 End: 12-18-2023 ambulatory DAWOOD DEEPTHI Not Available Start: 07-31-2023 End: 07-31-2023 ambulatory DAWOOD MCCALLO Not Available Start: 04-07-2023 End: 04-08-2023 ambulatory José Noreen KRYSTLE Facility: [facility] Start: 04-07-2023 End: 04-07-2023 Patient encounter procedure José R NILL General Surgery [place]/[facility] Start: 03-29-2023 End: 03-29-2023 ambulatory MELQUIADES KIZZY Not Available Start: 03-22-2023 End: 03-23-2023 ambulatory José DALTON Facility:[id number] Start: 02-21-2023 End: 02-22-2023 ambulatory José R KRYSTLE Facility: [facility] Start: 02-21-2023 End: 02-21-2023 Patient encounter procedure José Sorto NILL General Surgery [place]/[facility] Start: 01-31-2023 ambulatory José DALTON Facility:[facility] [place] Start: 08-06-2022 End: 08-06-[address] SERGIO BETHEA . Facility: Procedures Date Procedure Procedure Detail Performing Clinician Start: 03-22-2023 Excision of lipoma Sridhar kathi KRYSTLE Comment on above: right flank section José VALVERDE L Immunizations Immunization Date Immunization Notes Care Provider Fa cility NEGATED: Highlighted row has not occurred!02-21-2023 influenza virus vaccine, unspecified formulation José DALTON General Surgery [place] Payers Date Payer Category Payer Unknown [id number] 2.16.84 [id number] 1995 Unknown [id number] 2.16.8 [id number] 1995 Unknown [id number] 2.16.8 [id number] 1995 Unknown [id number] 2.16.8 [id number] 1995 Unknown [id number] 2.16.84 [id number] 1993 Unknown [id number] 2.16.84 [id number] 1993 Unknown [id number] [id number] 1959 Unknown [id number] Social History Date Type Detail Facility Start: 02-21-2023 Tobacco smoking status Heavy t obacco smoker (finding) [facility] [place] Tobacco smoking status Never Gener al Surgery [place] Sex Assigned At Female [facility] Functional Status Date Assessment Result Facility 02-21-2023 Functional Status N/A General [place] [facility] Clinical Note 02-21-2023 Note Date & Type [...] vaccine, inactivated - Not Given Patient Refuses [facility] Comment on above: Result Comment: Elec tronically Signed By: KRYSTLE TOWNSEND, José Steiner\Date and Time Signed: 02/21/23 20:35 EDT Evaluation + Plan note Note Date & Type Note Facility Evaluation + Plan note No data available for this section General [facility] [place] [facility] Discharge instructions Note Date & Type Note Facility Hospital Discharge instructions No data available for this section General [facility] [place] Progress note Note Date & Type Note Facility Progress note No data available for this section General Surgery [place] Summary Purpose Family History No Family History [...] pital DATE CREATED AUTHOR AUTHOR'S ORGANIZ ATION 04/08/2023 [facility] DATE CREATED AUTHOR AUTHOR'S ORGANIZ ATION 12/19/2023 [facility] dical Specialists [facility] Patient Care team informatio n (unrecognized section and content) Personnel Name: KELLY HAN CNP Address: Address: [address] [place] [address] [address] Personnel Name: KELLY HAN CNP Address: Address: [address] [place] [address] FOR RECORDS PERTAINING TO PATIENTS WHO [...] BE BASED ON THE PRIMARY CLINICAL RECORDS. [employer] provides no warranty or guarantee of the accuracy or completeness of information in this document.
== END 2024-02-29 10:16 | disposition home or self-care (01) ==
LOC: MAMMO 10:15
PROVIDERS: PCP Nurse Practitioner Family; Visit Provider Obstetrics & Gynecology
DX: R92.8 Other abnormal and inconclusive findings on diagnostic imaging of breast (principal); Z80.3 Family history of malignant neoplasm of breast; Z80.6 Family history of leukemia; Z80.8 Family history of malignant neoplasm of other organs or systems
CPT/HCPCS: 76642; 77065; G0279

== ENCOUNTER 2024-05-16 19:58 | Outpatient (REF) | payer OTHER, SELFPAY ==
--- OUTSIDE RECORDS SUMMARY | 2024-05-16 20:02 | XMS_ITS | CCD ---
Author Organization [facility] Care Team Providers Care Merchandise Examiner Name Role Phone NEEMA Gutierres, DR HILL [...] Allergy to substance Weal (disorder) General Surgery [place] (1 source) No Known Medication Allergies; Translations: [No Known Medication Allergies] Propensity to adverse reactions (disorder) [facility] Repository NEGATED: Highlighted row has been ruled out! (1 source) Drug allergy General Surgery [place] NEGATED: Highlighted row has been ruled out! (1 source) Drug allergy General Surgery [place] Medications Current Medications Medication Drug Class(es) Dates [...] for choosing us for your care. Normal [facility] General Surgery Office/Clini c Noteon 04-07-2023 General [...] inactivated - Not Given Patient Refuses Normal [facility] Comment on above: Result Comment: Elec tronically Signed By: KRYSTLE TOWNSEND, José Steiner\Date and Time Signed: 04/07/23 14:20 EST Pathology Noteon 04-03-2023 Pathology Note [id number] #1.00TIFF Normal [facility] Operative Reporton Operative Report [id number] #1.00TIFF Normal [facility] Insurance Correspondenceon Insurance Correspondence [id number] 1#1.00TIFF [facility] Consent for Procedure/Surger yon 02-22-2023 Consent for Procedure/Surgery [id number] 8#1.00TIFF [facility] Ambulatory Visit Summaryon Ambulatory Visit Summary EPIFANIO [...] Irritable bowel syndrome Morbid obesity Nicotine dependence [facility] Formson 02-21-2023 Forms [id number] #1.00TIFF [facility] Provider Letteron 02-03-2023 Provider Letter February 03, 2023 EPIFANIO COELHO [address] [place] [address] : 1995 Dear Ms. Coelho We have [...] attention to this matter. Sincerely, [facility] Surgery [phone] Normal [facility] RAD - CT Reporton 02-01-[address] - [address] Report [id number] #1.00CD:127 Normal [facility] RAD - Ultrasound Reporton RAD - Ultrasound Report [id number]# 1.00CD:127 Normal [facility] Physician Referralon 023 Physician Referral [id number] #1.00CD:127 Normal [facility] XR FOOT LT MIN 3 VIEWSon XR [...] by: MARV DÍAZ Date: 2022-08-06 11:17 Normal [facility] Vital Signs Date Time Vital Sign Value Performing Clinician Dharmesh mcbride 02-21-2023 13:13-0400 Blood Pressure Location José DALTON [facility] 02-21-2023 13:13-0400 Diastolic blood pressure 72 mm[Hg] José DALTON [facility] 02-21-2023 13:13-0400 Heart rate 76 /min José DALTON [facility] 02-21-2023 13:13-0400 Respiratory rate 16 /min José DALTON [facility] 02-21-2023 13:13-0400 Systolic blood pressure 118 mm[Hg] José VALVERDETerrance General Surgery [place] Encounters Encounter Date Encounter Type Care Provider [...] Start: 03-22-2023 End: 03-23-2023 ambulatory José DALTON Facility:[id number] Start: 02-21-2023 End: 02-22-2023 ambulatory José R KRYSTLE Facility: [facility] Start: 02-21-2023 End: 02-21-2023 Patient encounter procedure José Sorto NILL General Surgery [place] Start: 01-31-2023 ambulatory José DALTON Facility:[facility] Start: 08-06-2022 End: 08-06-[address] [...] [place] Payers Date Payer Category Payer Unknown [id number] 2.16.84 [id number] 1995 Unknown [id number] 2.16.8 [id number] 1995 Unknown [id number] 2.16.8 [id number] 1995 Unknown [id number] 2.16.8 [id number] 1993 Unknown [id number] 2.16.84 [id number] 1993 Unknown [id number] 2.16.84 [id number] 1993 Unknown [id number] .[id number] 1959 Unknown [id number] Social History Date Type Detail Facility Start: 02-21-2023 Tobacco smoking status Heavy t obacco smoker (finding) General Surgery [place] Tobacco smoking status Never Gener al Surgery [place] Sex Assigned At Female [facility] Functional Status Date Assessment Result Facility 02-21-2023 Functional Status N/A General [place] [facility] Clinical Note 02-21-2023 Note Date & [...] vaccine, inactivated - Not Given Patient Refuses [facility] Comment on above: Result Comment: Elec tronically Signed By: KRYSTLE TOWNSEND, José Steiner\Date and Time Signed: 02/21/23 20:35 EDT Evaluation + Plan note Note Date & Type Note Facility Evaluation + Plan note No data available for this section [facility] [place] [facility] Discharge instructions Note Date & Type Note Facility Hospital Discharge instructions No data available for this section [facility] [place] Progress note Note Date & Type Note Facility Progress note No data available for this section General [facility] [place] Summary Purpose Family History No Family History Records Found No data available for this section No data available for this section No Family History Records FoundNo Family History Records Found Advance Directives No Advanced Directives Records FoundNo Advanced Directives Records FoundNo Advanced Directives Records Found Additional Source Comments INFORMATION SOURCE (unrecogn ized section and content) DATE CREATED AUTHOR 08/10/2022 [facility] DATE CREATED AUTHOR AUTHOR'S ORGANIZ ATION 04/08/2023 [facility] DATE CREATED AUTHOR AUTHOR'S ORGANIZ ATION 12/19/2023 [facility] dical Specialists [facility] Patient Care team informatio n (unrecognized section and content) Personnel Name: KELLY HAN CNP Address: Address: [address] [place] [place] [address] [address] Personnel Name: KELLY HAN CNP Address: Address: [address] [place] [address] FOR RECORDS PERTAINING TO PATIENTS WHO [...] BE BASED ON THE PRIMARY CLINICAL RECORDS. [employer] provides no warranty or guarantee of the accuracy or completeness of information in this document.
[2024-05-21 14:11] LABS: Age Gdln ACOG Testing Note (.); HPV Aptima Negative (Negative); IGP, Aptima HPV, rfx 16/18,45 Note (.)
== END 2024-05-16 19:59 | disposition home or self-care (01) ==
LOC: LAB 19:58
PROVIDERS: PCP Nurse Practitioner Family; Visit Provider Physician Assistant
DX: Z01.419 Encounter for gynecological examination (general) (routine) without abnormal findings (principal)
CPT/HCPCS: 87624; 88175